=== PATIENT | female | born 1975 | race Caucasian/White ===

== ENCOUNTER 2019-10-25 12:02 | Emergency (ER) | payer MEDICAID ==
[~2019-10-25] VITALS: Ht 165.1 cm; Wt 91.2 kg
[2019-10-25 12:09] VITALS: Ht 165.1 cm; Wt 91.2 kg
[2019-10-25 15:17] VITALS: BP 122/83
== END 2019-10-25 15:17 | disposition home or self-care (01) ==
LOC: ED 12:02
DX: S61.211A Laceration without foreign body of left index finger without damage to nail, initial encounter (principal); W45.8XXA Other foreign body or object entering through skin, initial encounter; Y93.89 Activity, other specified; Y92.89 Other specified places as the place of occurrence of the external cause; Y99.8 Other external cause status
CPT/HCPCS: 90715; J2001